=== PATIENT | female | born 1970 | race Caucasian/White ===

== ENCOUNTER 2017-09-21 00:03 | Emergency (ER) | payer OTHER ==
[~2017-09-21] VITALS: Ht 162.6 cm; Wt 87.9 kg
[~2017-09-21 00:03] MED LIST: OMEP20CA16 PO
[2017-09-21 00:06] VITALS: Ht 162.6 cm; Wt 87.9 kg
[2017-09-21] MEDS ORDERED: DEXAMETHASONE 10 MG/ML 1 ML INJ IM ONE (00:30)
[2017-09-21] MEDS ORDERED: FAMO-96 PO (00:43)
[2017-09-21] MEDS ORDERED: BEN25 PO (00:43)
--- NOTE | 2017-09-21 01:18 | ERD ---
ER Documentation Chief Complaint Chief Complaint scaterred body rashes/ itchiness HPI 47 year old female comes in with a generalized rash pruritic for 1-2 weeks. Patient has been to the ER before and has received Prednisone without much relief. She states that she might try any milk. She has not had any other new allergens. No trouble swallowing, voice changes. Denies fevers or chills. ROS All systems reviewed and are negative except as per history of present illness. Medications Home Meds Active Scripts Famotidine* (Pepcid*) 20 Mg Tablet, 20 MG PO BID for 5 Days, TAB Prov:MANAV BERNAL PA-C 09/21/17 Diphenhydramine Hcl* (Benadryl*) 25 Mg Cap, 25 MG PO Q6, #30 CAP Prov:MANAV BERNAL PA-C 09/21/17 Reported Medications Omeprazole* (Omeprazole*) 20 Mg Capsule.dr, 20 MG PO DAILY 08/12/12 Allergies Allergies: Coded Allergies: Latex (Verified Allergy, Unknown, ITCHING, 08/12/12) Cephalexin Monohydrate (Verified Allergy, 08/12/12) Sulfa(Sulfonamide Antibiotics) (Verified Allergy, 08/12/12) PMhx/Soc History of Surgery: Yes (HERNIA REPAIR X4, TUMMY TUCK, BREAST SX-FIBROIDS) Anesthesia Reaction: Yes (N/V AT TIMES) Hx Neurological Disorder: No Hx Respiratory Disorders: Yes (ASTHMA) Hx Cardiac Disorders: Yes (ADMITTED 2 YRS AGO FOR HEART -STRESS) Hx Psychiatric Problems: No Hx Miscellaneous Medical Probl: No Hx Alcohol Use: Yes (OCCASIONALLY/SOCIALLY) Hx Substance Use: No Hx Tobacco Use: No Smoking Status: Never smoker Physical Exam Vitals Vital Signs Date Time Temp Pulse Resp B/P Pulse Ox O2 Delivery O2 Flow Rate FiO2 09/21/17 00:06 97.7 88 20 145/83 100 Physical Exam General: Well-developed, well-nourished. The patient appears in no acute distress. HEENT: Head is normocephalic, atraumatic. No scleral icterus. Neck: Supple. Nontender. Lungs: Clear to auscultation. Normal air movement. Heart: Regular rate and rhythm. S1 and S2 are normal. No murmurs, gallops, or rubs. Abdomen: Soft, nontender, nondistended. Bowel sounds are normoactive. Extremities: No clubbing or cyanosis. Normal pulses. Moving extremities x 4. No weakness. Neurologic: Alert and oriented 3. No focal deficits. Skin: Generalized kidney stones Results 24 hrs Current Medications Medications (Trade) Dose Ordered Sig/Artis Route PRN Reason Start Time Stop Time Status Last Admin Dose Admin Dexamethasone (Decadron) 10 mg ONCE ONCE IM 09/21/17 00:30 09/21/17 00:31 DC 09/21/17 00:39 Procedures/MDM 39-year-old female comes in the emergency room with generalized itching, patient has previously been treated with prednisone without much relief. The patient will be advised to continue Benadryl and Pepcid at home she was given Decadron in the emergency room. She will be asked to remove dairy from her diet , followed by gluten, and change to non-comedogenic detergent at home. If symptoms do not improve she is to follow-up with an protective service specialist. Departure Diagnosis: Primary Impression: Rash Condition: Good Patient Instructions: Dermatitis, Non-Specific MANAV BERNAL PA-C Sep 21, 2017 01:18
== END 2017-09-21 01:33 | disposition home or self-care (01) ==
LOC: FTE 00:03
DX: R21 Rash and other nonspecific skin eruption (principal); J45.909 Unspecified asthma, uncomplicated; Z91.040 Latex allergy status
CPT/HCPCS: 96372; J1100; Z7502

== ENCOUNTER 2017-11-08 18:06 | Emergency (ER) | END 2017-11-08 22:45 | disposition home or self-care (01) ==

== ENCOUNTER 2018-05-21 12:59 | Emergency (ER) | END 2018-05-21 16:09 | disposition home or self-care (01) ==

== ENCOUNTER 2018-06-04 23:31 | Emergency (ER) | END 2018-06-05 04:06 | disposition home or self-care (01) ==

== ENCOUNTER 2018-08-25 18:32 | Emergency (ER) | END 2018-08-26 00:55 | disposition home or self-care (01) ==